=== PATIENT | female | born 1970 | race African-American/Black ===

== ENCOUNTER 2020-12-30 10:15 | Day surgery (SDC) | payer MEDICAID ==
[~2020-12-30] VITALS: Ht 162.6 cm; Wt 43.6 kg
[2020-12-30 11:13] VITALS: BP 113/88; PULSE 95; TEMP 98.3
[2020-12-30 12:12] VITALS: BP 107/80; PULSE 98; TEMP 97.9
--- NOTE | 2020-12-30 12:12 | NUR ---
PATIENT TO [facility]ERY [facility] 6 POST PROCEDURE VIA CART ACCOMPANIED BY Nasim BACA RN. PATIENT AMBULATORY TO CHAIR WITH 2 PERSON ASSIST. PATIENT VERY SLEEPY. MADE COMFORTABLE IN CHAIR, GIVEN WARM BLANKETS. REPORT FROM Nasim BACA RN. VITAL SIGNS DONE, WNL. GIVEN WATER AND MUFFIN.
[2020-12-30 12:15] VITALS: BP 111/90; PULSE 91
[2020-12-30 12:30] VITALS: BP 116/88; PULSE 87
--- NOTE | 2020-12-30 12:30 | NUR ---
PATIENT CONTINUES TO BE VERY SLEEPY, EASILY AROUSED WHEN CALLED.
--- NOTE | 2020-12-30 12:42 | NUR ---
AT BEDSIDE TO DISCUSS FINDINGS OF PROCEDURE WITH PATIENT
[2020-12-30 12:45] VITALS: BP 119/81; PULSE 83
--- NOTE | 2020-12-30 13:00 | NUR ---
IV SITE TO LEFT AC DISCONTINUED, NO REDNESS OR SWELLING NOTED. PRESSURE APPLIED. SECURED WITH COTTON AND TAPE
--- NOTE | 2020-12-30 13:16 | NUR ---
HARD COPIES OF EDUCATION AND DISMISSAL INSTRUCTIONS GIVEN TO PATIENT FOR REVIEW. VERBAL EXPLANATION OF INSTRUCTIONS DONE WITH PATIENT. QUESTIONS ANSWERED AND CLARIFICATIONS MADE. PATIENT GIVES VERBAL UNDERSTANDING AND SIGNS IN ACKNOWLEDGEMENT.
--- NOTE | 2020-12-30 13:20 | NUR ---
PATIENT ESCORTED OFF UNIT VIA WHEELCHAIR TO WAITING RACE AND SPORTS BOOK WRITER BY STAFF. ASSISTED TO VEHICLE
== END 2020-12-30 13:20 | disposition home or self-care (01) ==
LOC: SDCO 10:15
DX: K92.1 Melena (principal); D12.8 Benign neoplasm of rectum; D12.5 Benign neoplasm of sigmoid colon; K62.89 Other specified diseases of anus and rectum; F17.210 Nicotine dependence, cigarettes, uncomplicated; K60.1 Chronic anal fissure; Z98.51 Tubal ligation status; Z79.899 Other long term (current) drug therapy; Z79.52 Long term (current) use of systemic steroids; Z20.822 Contact with and (suspected) exposure to COVID-19
CPT/HCPCS: J2704; J7030